=== PATIENT | female | born 1985 | race Hispanic/Latino ===

== ENCOUNTER 2018-10-19 19:43 | Emergency (ER) | payer SELFPAY ==
--- NOTE | 2018-10-19 20:59 | RAD ---
LEFT HAND RADIOGRAPHS THREE VIEWS 10/19/18 PROVIDED CLINICAL HISTORY: Left hand pain. FINDINGS: No evidence for fracture or other acute osseous abnormality. Alignment appears anatomic. Joint spaces appear preserved. IMPRESSION: No evidence for an acute osseous abnormality. If there is persistent clinical concern, conservative m anagement and followup imaging are advised. POS: [facility]
== END 2018-10-19 20:57 | disposition home or self-care (01) ==
LOC: SCSER 19:43
DX: M79.642 Pain in left hand (principal); E11.9 Type 2 diabetes mellitus without complications; F41.9 Anxiety disorder, unspecified